=== PATIENT | female | born 1990 | race Caucasian/White ===

== ENCOUNTER → 2017-09-21 | Outpatient (CLI) | payer OTHER ==
[2017-09-21 10:05] LABS: HEMATOCRIT 33.3 % (35.0-46.0); HEMOGLOBIN 11.6 GM/DL (11.6-15.3)
== END ==
LOC: CLAB 09:37
PROVIDERS: ATTEND Obstetrics & Gynecology
DX: Z34.90 Encounter for supervision of normal pregnancy, unspecified, unspecified trimester (principal); Z11.9 Encounter for screening for infectious and parasitic diseases, unspecified
CPT/HCPCS: 36415; 82951; 85014; 85018; 86703